=== PATIENT | male | born 1945 | race Hispanic/Latino ===

== ENCOUNTER → 2020-07-18 | Outpatient (CLI) | payer OTHER ==
--- NOTE | 2020-07-18 11:30 | NUR ---
MBSS COMPLETED. +ASPIRATION WITH THIN LIQUIDS. RECOMMEND REGULAR TEXTURE, NECTAR-THICK LIQUIDS, PILLS WHOLE WITH LIQUIDS. OCCUPATIONAL HEALTH SPECIALIST PROVIDED RESULTS AND RECOMMENDATIONS VIA WRITTEN AND VERBAL MODALITY. ALL QUESTIONS ANSWERED AT THIS TIME. OCCUPATIONAL HEALTH SPECIALIST PROVIDED Pt AND WITH A CAN OF THICKENER. RECOMMENDATIONS: 1. MBSS IN 2-3 MONTHS CONTINGENT ON IMPROVEMENT IN GENERAL HEALTH AND STRENGTH Addendum: 07/18/20 at 1616 by KEM ALONZO [facility] Amended: Links added.
== END | disposition home or self-care (01) ==
LOC: RAH 11:14
PROVIDERS: ATTEND Internal Medicine Gastroenterology
DX: R13.13 Dysphagia, pharyngeal phase (principal); R13.12 Dysphagia, oropharyngeal phase; R63.3 Feeding difficulties
CPT/HCPCS: 74230; 92611